=== PATIENT | female | born 1950 ===

== ENCOUNTER 2017-02-04 13:02 | Emergency (ER) | payer MEDICARE, MEDICAID ==
[2017-02-04 13:02] VITALS: BMI 32.9
[2017-02-04 13:08] VITALS: BP 188/83; PULSE 68; RESP 20; TEMP 98.1; O2SAT 98
[2017-02-04] MEDS ORDERED: Sodium Chloride 0.9% 1,000 ML IV STA (13:18)
--- NOTE | 2017-02-04 13:24 | ED PDOC ---
HPI:Nausea, Vomiting, Diarrhea Time Seen by Provider: 02/04/17 13:12 Chief Complaint (Nursing): GI Problem Chief Complaint (Provider): Nausea, Vomiting History Per: Patient History/Exam Limitations: no limitations Onset/Duration Of Symptoms: Days (x1) Current Symptoms Are (Timing): Still Present Associated Symptoms: Nausea, Vomiting Additional Complaint(s): 67 y/o female with a past medical history of vertigo and hypertension presents complaining of dizziness associated with nausea and vomiting, since this morning. Symptoms worsen on movement of head. Denies headache, chest pain, or palpitations. PMD: Dr. Flavio Darby Past Medical History Reviewed: Historical Data, Nursing Documentation, Vital Signs Vital Signs: Last Vital Signs Temp 98.1 F 02/04/17 13:05 Pulse 68 02/04/17 13:05 Resp 20 02/04/17 13:05 BP 188/83 H 02/04/17 13:05 Pulse Ox 98 02/04/17 13:05 - Medical History PMH: Fractures (Right Arm (6yrs old)), HTN, Hypercholesterolemia Denies: HIV, Chronic Kidney Disease Other PMH: Vertigo - Surgical History Surgical History: No Surg Hx - Family History Family History: States: Unknown Family Hx - Social History Current smoker - smoking cessation education provided: No Alcohol: None Drugs: Denies - Home Medications Home Medications: Ambulatory Orders Medication Instructions Recorded Lisinopril [Zestril] 5 mg PO DAILY 12/05/15 Meloxicam [Mobic] 7.5 mg PO DAILY PRN #30 tab 12/05/15 amLODIPine [Norvasc] 5 mg PO DAILY 12/05/15 Meclizine [Antivert] 25 mg PO Q6 PRN #30 tab 02/13/16 Ondansetron ODT [Zofran ODT] 4 mg PO Q6 PRN #16 odt 02/13/16 Meclizine [Meclizine*] 25 mg PO Q8 #15 tab 02/04/17 Ondansetron [Zofran] 4 mg PO Q8H #10 tab 02/04/17 - Allergies Allergies/Adverse Reactions: Allergies Allergy/AdvReac Type Severity Reaction Status Date / Time No Known Allergies Allergy Verified 02/12/16 19:51 Review of Systems ROS Statement: Except As Marked, All Systems Reviewed And Found Negative Cardiovascular: Negative for: Chest Pain, Palpitations Gastrointestinal: Positive for: Nausea, Vomiting. Negative for: Abdominal Pain , Diarrhea Neurological: Positive for: Dizziness. Negative for: Headache Physical Exam - Reviewed Nursing Documentation Reviewed: Yes Vital Signs Reviewed: Yes - Physical Exam Appears: Positive for: Non-toxic, No Acute Distress Head Exam: Positive for: ATRAUMATIC, NORMAL INSPECTION, NORMOCEPHALIC Skin: Positive for: Normal Color, Warm, Dry Eye Exam: Positive for: EOMI, Normal appearance, PERRL Neck: Positive for: Normal, Painless ROM Cardiovascular/Chest: Positive for: Regular Rate, Rhythm. Negative for: Murmur Respiratory: Positive for: Normal Breath Sounds. Negative for: Accessory Muscle Use, Respiratory Distress Extremity: Positive for: Normal ROM. Negative for: Pedal Edema, Deformity Neurologic/Psych: Positive for: Alert, Oriented (x3), Other (Symptoms elicited with real-hallpike maneuver). Negative for: Motor/Sensory Deficits - Laboratory Results Result Diagrams: 02/04/17 14:07 02/04/17 14:07 - ECG O2 Sat by Pulse Oximetry: 98 (RA) Pulse Ox Interpretation: Normal Medical Decision Making Medical Decision Making: Time: 13:18 Initial Plan: --EKG --CMP --CBC --Meclizine 25 mg PO --NS IV 1000 ml at 200 mls/hr --Zofran 4 mg IV --Pending reevaluation Scribe Attestation: Documented by Belgica Butcher, acting as a scribe for Db Duarte MD Provider Scribe Attestation: All medical record entries made by the Scribe were at my direction and personally dictated by me. I have reviewed the chart and agree that the record accurately reflects my personal performance of the history, physical exam, medical decision making, and the department course for this patient. I have also personally directed, reviewed, and agree with the discharge instructions and disposition. Disposition - Clinical Impression Clinical Impression: Vertigo - Patient ED Disposition Is Patient to be Admitted: No Counseled Patient/Family Regarding: Studies Performed, Diagnosis, Need For Followup, Rx Given - Disposition Referrals: [facility] [Outside] Disposition: Routine/Home Disposition Time: 16:15 Condition: FAIR Prescriptions: Meclizine [Meclizine*] 25 mg PO Q8 #15 tab Ondansetron [Zofran] 4 mg PO Q8H #10 tab Instructions: Vertigo (ED) Forms: [facility] ([place] Islander) Print Language: BHUTANESE
[2017-02-04 14:11] LABS: BASO % 0.5 % (0.0-2.0); EOS % 0.5 % (0.0-4.0); HEMATOCRIT 41.3 % (34.0-47.0); LYMPH # 1.2 K/uL (1.0-4.3); LYMPH % 18.3 % (20.0-40.0); MEAN CELL VOLUME 88.9 fl (81.0-99.0); MEAN CORPUSCULAR HGB CONC 32.6 g/dL (33.0-37.0); MONO # 0.3 K/uL (0.0-0.8); MONO % 5.3 % (0.0-10.0); NEUT # 4.9 K/uL (1.8-7.0); NEUT % 75.4 % (50.0-75.0); NRBC % 0.1 % (0.0-0.0); RED CELL DISTRIBUTION WIDTH 13.6 % (11.5-14.5); WHITE BLOOD COUNT 6.4 K/uL (4.8-10.8)
[2017-02-04 14:28] LABS: ALB/GLOB RATIO 1.2 (1.0-2.1); ALKALINE PHOSPHATASE 125 U/L (38-126); ALT/SGPT 48 U/L (9-52); AST/SGOT 38 U/L (14-36); BILIRUBIN,TOTAL 0.4 mg/dl (0.2-1.3); BLOOD UREA NITROGEN 17 mg/dl (7-17); CALCIUM 8.4 mg/dL (8.4-10.2); CARBON DIOXIDE 29 mmol/L (22-30); CHLORIDE 106 mmol/L (98-107); GFR AFRICAN-AMERICAN > 60; GLUCOSE,RANDOM 169 mg/dL (65-105); POTASSIUM 4.1 MMOL/L (3.6-5.0); SODIUM 143 mmol/l (132-148); TOTAL PROTEIN 8.1 G/DL (6.3-8.2)
--- NOTE | 2017-02-05 12:51 | CARD ---
APPROVED REPORT EKG Measurement Heart [id number] TX [id number] <Conclusion> Normal sinus rhythm Left axis deviation Right bundle branch block Inferior infarct, age undetermined Abnormal ECG
== END 2017-02-04 16:36 | disposition home or self-care (01) ==
LOC: H.ER 13:02
DX: R42 Dizziness and giddiness (principal); R11.2 Nausea with vomiting, unspecified; E78.00 Pure hypercholesterolemia, unspecified; I10 Essential (primary) hypertension
CPT/HCPCS: 80053; 85025; 93005; 96374; 99283; J2405; J7040

== ENCOUNTER 2018-03-10 11:24 | Inpatient (IN) | payer MEDICARE, MEDICAID ==
[2018-03-10 11:25] VITALS: BMI 32.9
[2018-03-10] MEDS ORDERED: Sodium Chloride 0.9% 1,000 ML IV STA (12:14)
--- NOTE | 2018-03-10 12:17 | ED PDOC ---
HPI: General Adult Time Seen by Provider: 03/10/18 12:02 Chief Complaint (Nursing): Dizziness/Lightheaded Chief Complaint (Provider): VERTIGO/VOMITING History Per: Patient (68 Y/O FEMALE H/O CVA H/O VERTIGO HERE WITH ROOM SPINNING ASSOCIATED WITH MULTIPLE EPISODES OF VOMITING. DENIES ANY UNILATERAL WEAKNESS/NUMBNESS. DENIES ANY CHEST PAIN/ABDOMINAL PAIN. NO FEVERS/CHILLS.) NIHSS Stroke Scale - Date/Time Evaluation Performed Date Performed: 03/10/18 Time Performed: 16:29 - How Severe is the Stroke Level of Consciousness: 0=Alert LOC to Questions: 0=Both comments correct LOC to commands: 0=Obeys both correctly Best Gaze: 0=Normal Visual: 0=No visual loss Facial: 0=Normal Motor Arm - Left: 0=No drift Motor Arm - Right: 0=No drift Motor Leg - Left: 0=No drift Motor Leg - Right: 0=No drift Limb Ataxia: 1=Present Upper or Lower (Unable to walk due to dizziness) Best Language: 0=No aphasia Dysarthia: 0=Normal articulation Extinction & Inattention (Neglect): 0=Normal, no object Past Medical History Reviewed: Historical Data, Nursing Documentation, Vital Signs Vital Signs: Last Vital Signs Temp 97.8 F 03/10/18 11:32 Pulse 66 03/10/18 11:32 Resp 18 03/10/18 11:32 BP 169/92 H 03/10/18 11:32 Pulse Ox 97 03/10/18 11:32 - Medical History PMH: CVA, Fractures (Right Arm (6yrs old)), HTN, Hypercholesterolemia Denies: HIV, Chronic Kidney Disease - Family History Family History: States: Unknown Family Hx - Home Medications Home Medications: Ambulatory Orders Medication Instructions Recorded Lisinopril [Zestril] 5 mg PO DAILY 12/05/15 Meloxicam [Mobic] 7.5 mg PO DAILY PRN #30 tab 12/05/15 amLODIPine [Norvasc] 5 mg PO DAILY 12/05/15 Meclizine [Antivert] 25 mg PO Q6 PRN #30 tab 02/13/16 Ondansetron ODT [Zofran ODT] 4 mg PO Q6 PRN #16 odt 02/13/16 Meclizine [Meclizine*] 25 mg PO Q8 #15 tab 02/04/17 Ondansetron [Zofran] 4 mg PO Q8H #10 tab 02/04/17 - Allergies Allergies/Adverse Reactions: Allergies Allergy/AdvReac Type Severity Reaction Status Date / Time No Known Allergies Allergy Verified 03/10/18 12:06 Review of Systems ROS Statement: Except As Marked, All Systems Reviewed And Found Negative Gastrointestinal: Positive for: Vomiting Neurological: Positive for: Dizziness Physical Exam - Reviewed Nursing Documentation Reviewed: Yes Vital Signs Reviewed: Yes - Physical Exam Appears: Positive for: Well, Non-toxic, No Acute Distress Head Exam: Positive for: ATRAUMATIC, NORMAL INSPECTION, NORMOCEPHALIC Skin: Positive for: Normal Color, Warm, DRY Eye Exam: Positive for: EOMI, Normal appearance, PERRL ENT: Positive for: Normal ENT Inspection Neck: Positive for: Normal, Painless ROM Cardiovascular/Chest: Positive for: Regular Rate, Rhythm Respiratory: Positive for: CNT, Normal Breath Sounds Gastrointestinal/Abdominal: Positive for: Normal Exam, Soft Back: Positive for: Normal Inspection Extremity: Positive for: Normal ROM Neurologic/Psych: Positive for: Alert, Oriented - Laboratory Results Result Diagrams: 03/10/18 13:05 03/10/18 13:05 - ECG O2 Sat by Pulse Oximetry: 97 - Progress ED Course And Treament: zofran 4 mg iv x 1 dose antivert 25 mg po x 1 dose reglan 10 mg iv x 1 dose NS 1 liter 500ml per hour CT of head:FINDINGS: HEMORRHAGE: No acute parenchymal, subarachnoid or extra-axial hemorrhage.. BRAIN: No mass effect or edema. No atrophy or chronic microvascular ischemic changes. VENTRICLES: No obstructive hydrocephalus. CALVARIUM: There are no acute calvarial fractures. PARANASAL SINUSES: Minimal mucosal thickening seen within both maxillary antra as well as a few ethmoid air cells. The the MASTOID AIR CELLS: Unremarkable as visualized. No inflammatory changes. OTHER FINDINGS: None. IMPRESSION: No acute intracranial hemorrhage. Patient has persistent vomiting/dizziness in ED with inability to walk to bathroom. Zofran 4 mg iv x 2nd dose Valium 5 mg x 1 dose d/w DR. Hartman. Requests antivert 25 mg qid po and neuro consult d/w Neurology. Request MRI of brain Disposition - Clinical Impression Clinical Impression: Vertigo, Intractable vomiting - Patient ED Disposition Is Patient to be Admitted: Yes - Disposition Disposition Time: 16:56 Condition: FAIR - Pt Status Changed To: Hospital Disposition Of: Inpatient - Admit Certification Admit to Inpatient:: After my assessment, the patient will require hospitalization for at least two midnights. This is because of the severity of symptoms shown, intensity of services needed, and/or the medical risk in this patient being treated as an outpatient.
--- NOTE | 2018-03-10 13:27 | CT ---
Date of service: 03/10/2018 PROCEDURE: CT HEAD WITHOUT CONTRAST. HISTORY: DIZZINESS/VERTIGO COMPARISON: Comparison made with prior CT scan brain 02/12/2016. TECHNIQUE: Axial computed tomography images were obtained through the head/brain without intravenous contrast. Radiation dose: Total exam DLP = 968.07 mGy-cm. This CT exam was performed using one or more of the following dose reduction techniques: Automated exposure control, adjustment of the mA and/or kV according to patient size, and/or use of iterative reconstruction technique. FINDINGS: HEMORRHAGE: No acute parenchymal, subarachnoid or extra-axial hemorrhage.. BRAIN: No mass effect or edema. No atrophy or chronic microvascular ischemic changes. VENTRICLES: No obstructive hydrocephalus. CALVARIUM: There are no acute calvarial fractures. PARANASAL SINUSES: Minimal mucosal thickening seen within both maxillary antra as well as a few ethmoid air cells. The the MASTOID AIR CELLS: Unremarkable as visualized. No inflammatory changes. OTHER FINDINGS: None. IMPRESSION: No acute intracranial hemorrhage.
[2018-03-10 14:17] LABS: BASO % 0.6 % (0.0-2.0); EOS # 0.1 K/uL (0.0-0.7); EOS % 0.8 % (0.0-4.0); HEMOGLOBIN 13.3 g/dL (12.0-16.0); LYMPH # 1.5 K/uL (1.0-4.3); LYMPH % 23.1 % (20.0-40.0); MEAN CELL VOLUME 89.3 fl (81.0-99.0); MEAN CORPUSCULAR HEMOGLOBIN 29.7 pg (27.0-31.0); MEAN CORPUSCULAR HGB CONC 33.3 g/dL (33.0-37.0); MONO # 0.4 K/uL (0.0-0.8); MONO % 6.2 % (0.0-10.0); NEUT # 4.6 K/uL (1.8-7.0); NEUT % 69.3 % (50.0-75.0); NRBC % 0.1 % (0.0-0.0); RBC 4.47 Mil/uL (3.80-5.20); RED CELL DISTRIBUTION WIDTH 13.9 % (11.5-14.5); WHITE BLOOD COUNT 6.6 K/uL (4.8-10.8)
[2018-03-10 14:31] LABS: ALB/GLOB RATIO 1.2 (1.0-2.1); ALBUMIN 4.3 g/dL (3.5-5.0); ALT/SGPT 37 U/L (9-52); AST/SGOT 34 U/L (14-36); BLOOD UREA NITROGEN 21 mg/dl (7-17); CALCIUM 8.7 mg/dL (8.4-10.2); GFR NON-AFRICAN AMERICAN > 60
[2018-03-10] MEDS ORDERED: Naproxen 500 MG TAB PO PRN (22:19)
[2018-03-10] MEDS ORDERED: Dextrose 5%/0.45% NS 1,000 ML IV SCH (22:30)
--- NOTE | 2018-03-11 13:43 | HP ---
HISTORY OF PRESENT ILLNESS: Ms. Alfred is a 68-year-old female who was admitted via the emergency room because of severe dizziness with nausea and vomiting on the day of admission. She was evaluated in the emergency room and admitted for intractable dizziness (probable vertigo, rule out [employer] pathology). PAST MEDICAL HISTORY: Hypertension and gastritis. FAMILY HISTORY: Unrevealing. SOCIAL HISTORY: Does not smoke or drink and lives at home with her children. REVIEW OF SYSTEMS: Essentially unremarkable. PHYSICAL EXAMINATION: GENERAL: The patient is alert and oriented, still appears very dizzy. VITAL SIGNS: Blood pressure 129/70, pulse 64, respiratory 20. She is febrile. O2 sat 96% on room air. SKIN: Shows fair turgor. HEENT: Pupils are equal and react to light and accommodation. JVP flat. Mouth shows fair hygiene. Ears, nose and throat normal. LUNGS: Clear. HEART: Regular. No murmurs or gallop. ABDOMEN: Soft, nontender. No organomegaly. EXTREMITIES: Shows no edema or cyanosis. GENITAL AND RECTAL: Deferred. CENTRAL NERVOUS SYSTEM: Grossly intact except for dizziness. LABORATORY DATA: CAT scan of the brain is essentially unremarkable. WBC 6.6, hemoglobin 13.3, platelet count of 238,000. Sodium 140, potassium 3.2, BUN 21, creatinine 0.8, serum glucose of 130. IMPRESSION: Intractable dizziness, questionable etiology, rule out central nervous system pathology; hypertension, fairly controlled. PLAN: Monitor the patient in telemetry. Obtain MRI of the brain. Also, obtain carotid, vertebrobasilar ultrasound. Neurology evaluation already ordered. Place the patient on Antivert. Further therapy will depend on findings. Jim Hartman MD
[2018-03-11 14:25] LABS: T4 6.62 ug/dl (5.5-11.0)
--- NOTE | 2018-03-11 14:51 | MRI ---
Date of service: 03/11/2018 PROCEDURE: MRI BRAIN WITHOUT CONTRAST HISTORY: Vertigo intractable h/o cva COMPARISON: Comparison made with prior CT scan brain 03/10/2018. TECHNIQUE: Multiplanar, multisequence MR images of the brain were obtained without intravenous contrast enhancement. FINDINGS: HEMORRHAGE: No acute parenchymal, subarachnoid or extra-axial hemorrhage. No evidence of hemosiderin deposition identified on gradient echo weighted sequence. DWI: No evidence of an acute or early subacute infarction seen on diffusion imaging. BRAIN PARENCHYMA: There is a tiny non specific focus of increased T2 signal in the left posterior frontal subcortical white matter of uncertain etiology though the change may represent sequela of small vessel disease. No other definitive focal areas of abnormal signal seen throughout the remaining brain parenchyma aside from symmetric artifact crossing most axial images and particularly conspicuous on the FLAIR sequence.. VENTRICLES: No obstructive hydrocephalus. CRANIUM: Unremarkable. ORBITS: Orbits and contents grossly unremarkable. PARANASAL SINUSES/MASTOIDS: Clear VASCULAR SYSTEM: Visualized major vascular flow voids at skull base patent.. OTHER FINDINGS: None. IMPRESSION: No evidence acute intracranial hemorrhage. Tiny nonspecific focus of increased T2 signal left posterior frontal subcortical white matter nonspecific though likely represents minimal chronic sequela of small vessel disease
--- NOTE | 2018-03-11 23:26 | CARD ---
APPROVED REPORT Date of service: 03/10/2018 EKG Measurement Heart [id number] NM [id number] [id number] <Conclusion> Normal sinus rhythm Left axis deviation Nonspecific intraventricular block Inferior infarct, age undetermined Abnormal ECG
--- NOTE | 2018-03-11 23:53 | CARD ---
APPROVED REPORT Date of service: 03/11/2018 EXAM: Two-dimensional and M-mode echocardiogram with Doppler and color Doppler. INDICATION Dizziness and Vertigo M-Mode DIMENSIONS Left Atrium (MM)3.55 (2.5-4.0cm)IVSd0.92 (0.7-1.1cm) Aortic Root3.36 (2.2-3.7cm)LVDd5.29 (4.0-5.6cm) PWd0.90 (0.7-1.1cm)IVSs1.38 cm FS (%) 34 %LVDs3.50 (2.0-3.8cm) PWs1.26 cm Aortic Valve AoV Peak Bovmoyql146.0cm/sAoV VTI35.1cmAO Peak GR.9mmHg LVOT Peak Mnsvchxz988.9cm/sLVOT VTI24.61cmAO Mean GR.5mmHg AI P 1/2 Pjdj367hx Mitral Valve MV E Aifywtrh53.2cm/sMV E Peak Gr.65mmHgMV DECEL XOXS617if MV A Naygmsas370.6cm/sMV RVW98lfA/A ratio0.9 MVA (PHT)2.86cm2 TDI Lateral E' Peak V12.30cm/sMedial E' Peak V7.25cm/sE/Lateral E'7.3 E/Medial E'12.4 Pulmonary Valve PV Peak Mmpqbihh82.9cm/s Tricuspid Valve TR Peak Syhjskcm865sa/sTR Peak Gr.19mmMnNLCH49fyXu LEFT VENTRICLE The left ventricle is normal size. There is normal left ventricular wall thickness. The left ventricular systolic function is normal. The estimated ejection fraction is 55-60% No regional wall motion abnormalities noted.. Transmitral Doppler flow pattern is Grade I-abnormal relaxation pattern. No left ventricle thrombus noted on this study. There is no ventricular septal defect visualized. There is no left ventricular aneurysm. There is no mass noted in the left ventricle. RIGHT VENTRICLE The right ventricle is normal size. There is normal right ventricular wall thickness. The right ventricular systolic function is normal. ATRIA The left atrium size is normal. The right atrium size is normal. The interatrial septum is intact with no evidence for an atrial septal defect. AORTIC VALVE The aortic valve is normal in structure. Mild to moderate aortic regurgitation is present. There is no aortic valvular stenosis. There is no aortic valvular vegetation. MITRAL VALVE The mitral valve is normal in structure. There is no evidence of mitral valve prolapse. There is no mitral valve stenosis. There is trace mitral valve regurgitation noted. TRICUSPID VALVE The tricuspid valve is normal in structure. There is mild tricuspid valve regurgitation noted. RVSP is calculated at 34 mm Hg. There is no tricuspid valve prolapse or vegetation. There is no tricuspid valve stenosis. PULMONIC VALVE The pulmonary valve is normal in structure. There is no pulmonic valvular regurgitation. There is no pulmonic valvular stenosis. GREAT VESSELS The aortic root is normal in size. The ascending aorta is normal in size. The pulmonary artery is normal. The IVC is normal in size and collapses >50% with inspiration. PERICARDIAL EFFUSION There is no pericardial effusion. There is no pleural effusion. <Conclusion> The estimated ejection fraction is 55-60% Transmitral Doppler flow pattern is Grade I-abnormal relaxation pattern. The left atrium size is normal. Mild to moderate aortic regurgitation is present. There is trace mitral valve regurgitation noted. There is mild tricuspid valve regurgitation noted. RVSP is calculated at 34 mm Hg.
--- NOTE | 2018-03-12 10:38 | CP.PCM.PN ---
Subjective - Date & Time of Evaluation Date of Evaluation: 03/12/18 Time of Evaluation: 10:39 - Subjective Subjective: DIZZINESS STILL PRESENT BUT IMPROVING ABLE TO WALK WITH ASSISTANCE VSS Objective - Vital Signs/Intake and Output Vital Signs (last 24 hours): Temp Pulse Resp BP Pulse Ox 98.4 F 60 20 149/71 99 03/12/18 08:31 03/12/18 09:04 03/12/18 08:31 03/12/18 09:04 03/12/18 08:31 - Medications Medications: Current Medications Amlodipine Besylate (Norvasc) 5 mg PO DAILY [facility] Last Admin: 03/12/18 09:04 Dose: 5 mg Aspirin (Ecotrin) 81 mg PO DAILY [facility] Last Admin: 03/12/18 09:04 Dose: 81 mg Lisinopril (Zestril) 10 mg PO DAILY [facility] Last Admin: 03/12/18 09:03 Dose: 10 mg Meclizine HCl (Antivert) 25 mg PO QID [facility] Last Admin: 03/12/18 09:03 Dose: 25 mg Naproxen (Naproxen) 500 mg PO Q12 PRN PRN Reason: Pain, moderate (4-7) Last Admin: 03/11/18 13:55 Dose: 500 mg - Labs Labs: 03/10/18 13:05 03/10/18 13:05 - Constitutional Appears: No Acute Distress - Head Exam Head Exam: ATRAUMATIC, NORMAL INSPECTION, NORMOCEPHALIC - Eye Exam Eye Exam: EOMI, Normal appearance, PERRL Pupil Exam: NORMAL ACCOMODATION, PERRL - ENT Exam ENT Exam: Mucous Membranes Moist, Normal Exam - Neck Exam Neck Exam: Full ROM, Normal Inspection. absent: Lymphadenopathy - Respiratory Exam Respiratory Exam: Clear to Ausculation Bilateral, NORMAL BREATHING PATTERN - Cardiovascular Exam Cardiovascular Exam: REGULAR RHYTHM, +S1, +S2. absent: Murmur - GI/Abdominal Exam GI & Abdominal Exam: Soft, Normal Bowel Sounds. absent: Tenderness - Rectal Exam Rectal Exam: NORMAL INSPECTION - Extremities Exam Extremities Exam: Full ROM, Normal Capillary Refill, Normal Inspection. absent: Joint Swelling, Pedal Edema - Back Exam Back Exam: NORMAL INSPECTION - Neurological Exam Neurological Exam: Abnormal Gait, Alert, Awake, CN II-XII Intact, Oriented x3 - Psychiatric Exam Psychiatric exam: Normal Affect, Normal Mood - Skin Skin Exam: Dry, Intact, Normal Color, Warm Assessment and Plan - Assessment and Plan (Free Text) Assessment: SEVERE DIZZINESS--PROBABLY VERTIGO HTN HYPERLIPIDEMIA Plan: CONTINUE CURRENT RX INCREASE ACTIVITY CAROTID DOPPLER ORDERED TO R/O VASCULAR PATHOLOGY D/C IN AM IF STABLE
--- NOTE | 2018-03-12 16:38 | US ---
Date of service: 03/12/2018 PROCEDURE: Duplex ultrasound of the carotid and vertebral arteries. HISTORY: DIZZINESS COMPARISON: Comparison made with prior carotid Doppler study 03/13/2011. Correlation made with CT scan and MRI of the brain dated 03/10/2018 and 03/11/2018 respectively. Comparison made with TECHNIQUE: Grayscale and duplex Doppler evaluation of the cervical carotid and vertebral arteries were performed. The common carotid, carotid bifurcations and cervical ICA and proximal ECA were evaluated. The vertebral arteries were evaluated for gross patency and direction. FINDINGS: RIGHT CAROTID ARTERIES: Common Carotid Artery: Mild intimal thickening l. Maximal flow velocity of 61.2 cm/s. Carotid Bifurcation: Normal. Internal Carotid Artery:Normal. Maximal flow velocity of 83.1 cm/s. External Carotid Artery (proximal branches): Normal. Maximal flow velocity of 93 cm/s. ICA/CCA Ratio: 1.5 LEFT CAROTID ARTERIES: Common Carotid Artery: Mild intimal thickening. Maximal flow velocity of 64.7 cm/s. Carotid Bifurcation: Small plaque left carotid bifurcation the. Internal Carotid Artery:Normal. Maximal flow velocity of 100 cm/s. External Carotid Artery (proximal branches): Normal. Maximal flow velocity of 85.6 cm/s. ICA/CCA Ratio: 1.8 VERTEBRAL ARTERIES: Right Vertebral Artery: Patent. Antegrade flow. Left Vertebral Artery: Patent. Antegrade flow. OTHER FINDINGS: No atherosclerotic calcification present IMPRESSION: Mild intimal thickening both common carotid arteries with small plaque left carotid bifurcation. No evidence of a hemodynamically significant stenosis based on velocity measurements..
[2018-03-13 07:44] VITALS: RESP 18; O2SAT 98
--- NOTE | 2018-03-13 10:41 | CP.PCM.PN ---
Subjective - Date & Time of Evaluation Date of Evaluation: 03/13/18 Time of Evaluation: 10:40 - Subjective Subjective: Neurology Follow-Up Note: Mrs. Tima Darby was evaluated this morning at bedside. She admits that her dizziness has improved since admission. She states that she ran out of her Meclizine prescription at home. She describes her dizziness as the "room spinning." It is usually improved with Meclizine. Has tried vestibular therapy in the past but "I didn't like the way it made me feel." Currently denies h/a, dizziness, visual changes, chest pain, palpitations, sob, n/v/d. Objective - Vital Signs/Intake and Output Vital Signs (last 24 hours): Temp Pulse Resp BP Pulse Ox 98.6 F 62 18 133/74 98 03/13/18 07:44 03/13/18 09:11 03/13/18 07:44 03/13/18 09:11 03/13/18 07:44 - Medications Medications: Current Medications Amlodipine Besylate (Norvasc) 5 mg PO DAILY [facility] Last Admin: 03/13/18 09:11 Dose: 5 mg Aspirin (Ecotrin) 81 mg PO DAILY [facility] Last Admin: 03/13/18 09:10 Dose: 81 mg Atorvastatin Calcium (Lipitor) 10 mg PO DAILY@2200 [facility] Last Admin: 03/12/18 21:42 Dose: 10 mg Lisinopril (Zestril) 10 mg PO DAILY [facility] Last Admin: 03/13/18 09:11 Dose: 10 mg Meclizine HCl (Antivert) 25 mg PO QID [facility] Last Admin: 03/13/18 09:10 Dose: 25 mg Naproxen (Naproxen) 500 mg PO Q12 PRN PRN Reason: Pain, moderate (4-7) Last Admin: 03/11/18 13:55 Dose: 500 mg - Labs Labs: 03/10/18 13:05 03/10/18 13:05 - Constitutional Appears: Well, Non-toxic, No Acute Distress - Head Exam Head Exam: ATRAUMATIC, NORMAL INSPECTION, NORMOCEPHALIC - Eye Exam Eye Exam: EOMI, Normal appearance. absent: Nystagmus Pupil Exam: NORMAL ACCOMODATION - ENT Exam ENT Exam: Mucous Membranes Moist - Neck Exam Neck Exam: Full ROM, Normal Inspection - Respiratory Exam Respiratory Exam: NORMAL BREATHING PATTERN - Extremities Exam Extremities Exam: Full ROM, Normal Inspection. absent: Calf Tenderness, Pedal Edema - Back Exam Back Exam: Full ROM - Neurological Exam Neurological Exam: Alert, Awake, CN II-XII Intact, Oriented x3, Reflexes Normal Neuro motor strength exam: Left Upper Extremity: 5, Right Upper Extremity: 5, Left Lower Extremity: 5, Right Lower Extremity: 5 Additional comments: speech clear no neuro deficits on exam strength equal and strong b/l fine motor and sensation intact gait not assessed; PT notes reviewed. - Psychiatric Exam Psychiatric exam: Normal Affect, Normal Mood - Skin Skin Exam: Normal Color Assessment and Plan (1) Vertigo Assessment & Plan: Imaging reviewed: -ECHO (03/11/18): EF 55-60% -Carotid U/S (03/11/18): Mild intimal thickening both common carotid arteries with small plaque left carotid bifurcation. No evidence of a hemodynamically significant stenosis based on velocity measurements. -MRI Brain (03/10/18): No evidence acute intracranial hemorrhage. Tiny nonspecific focus of increased T2 signal left posterior frontal subcortical white matter nonspecific though likely represents minimal chronic sequela of small vessel disease -CT Head (03/10/18): No acute intracranial hemorrhage -Dizziness is likely 2/2 vertigo -Continue Meclizine 25 mg PO QID prn dizziness upon discharge. Please provide pt with rx as she has ran out of her rx at home. -Continue PT -Notify neuro of acute changes. -Pt is neurologically stable for d/c. Pt may follow up with in the office within 3-4 weeks and prn. -Please reconsult prn. Thank you for allowing us to participate in this pt's care. Case discussed with . Status: Acute
[2018-03-13 11:51] VITALS: BP 152/82; PULSE 77; TEMP 98.3
--- NOTE | 2018-03-13 12:21 | CP.PCM.DIS ---
Provider - Provider Date of Admission: 03/12/18 10:40 Attending physician: Jim Hartman MD Consults: 03/10/18 17:00 Neurology Consult Stat Comment: vertigo Consulting Provider: Ishmael Rao Consulting Physician: Ishmael Rao Reason for Consult: vertigo Time Spent in preparation of Discharge (in minutes): 30 Diagnosis - Discharge Diagnosis (1) Intractable vomiting Status: Acute (2) Vertigo Status: Acute (3) DVT prophylaxis Status: Acute (4) Hypertension Status: Acute Hospital Course - Lab Results Lab Results: Most Recent Lab Values WBC 6.6 K/uL (4.8-10.8) 03/10/18 13:05 RBC 4.47 Mil/uL (3.80-5.20) 03/10/18 13:05 Hgb 13.3 g/dL (12.0-16.0) 03/10/18 13:05 Hct 39.9 % (34.0-47.0) 03/10/18 13:05 MCV 89.3 fl (81.0-99.0) 03/10/18 13:05 MCH 29.7 pg (27.0-31.0) 03/10/18 13:05 MCHC 33.3 g/dL (33.0-37.0) 03/10/18 13:05 RDW 13.9 % (11.5-14.5) 03/10/18 13:05 Plt Count 238 K/uL (130-400) 03/10/18 13:05 MPV 9.0 fl (7.2-11.7) 03/10/18 13:05 Neut % (Auto) 69.3 % (50.0-75.0) 03/10/18 13:05 Lymph % (Auto) 23.1 % (20.0-40.0) 03/10/18 13:05 Winn % (Auto) 6.2 % (0.0-10.0) 03/10/18 13:05 Eos % (Auto) 0.8 % (0.0-4.0) 03/10/18 13:05 Baso % (Auto) 0.6 % (0.0-2.0) 03/10/18 13:05 Neut # (Auto) 4.6 K/uL (1.8-7.0) 03/10/18 13:05 Lymph # (Auto) 1.5 K/uL (1.0-4.3) 03/10/18 13:05 Winn # (Auto) 0.4 K/uL (0.0-0.8) 03/10/18 13:05 Eos # (Auto) 0.1 K/uL (0.0-0.7) 03/10/18 13:05 Baso # (Auto) 0.0 K/uL (0.0-0.2) 03/10/18 13:05 ESR 28 mm/hr (0-30) 03/11/18 13:38 Sodium 140 mmol/l (132-148) 03/10/18 13:05 Potassium 3.8 MMOL/L (3.6-5.0) 03/10/18 13:05 Chloride 102 mmol/L (98-107) 03/10/18 13:05 Carbon Dioxide 25 mmol/L (22-30) 03/10/18 13:05 Anion Gap 17 (10-20) 03/10/18 13:05 BUN 21 mg/dl (7-17) H 03/10/18 13:05 Creatinine 0.8 mg/dl (0.7-1.2) 03/10/18 13:05 Est GFR ( Amer) > 60 03/10/18 13:05 Est GFR (Non-Af Amer) > 60 03/10/18 13:05 POC Glucose (mg/dL) 213 mg/dL (65-110) H 03/13/18 10:42 Random Glucose 160 mg/dL (65-105) H 03/10/18 13:05 Calcium 8.7 mg/dL (8.4-10.2) 03/10/18 13:05 Magnesium 2.0 MG/DL (1.6-2.3) 03/10/18 13:05 Total Bilirubin 0.4 mg/dl (0.2-1.3) 03/10/18 13:05 AST 34 U/L (14-36) 03/10/18 13:05 ALT 37 U/L (9-52) 03/10/18 13:05 Alkaline Phosphatase 118 U/L (38-126) 03/10/18 13:05 Troponin I < 0.0120 ng/mL (0.00-0.120) 03/10/18 13:05 Total Protein 7.8 G/DL (6.3-8.2) 03/10/18 13:05 Albumin 4.3 g/dL (3.5-5.0) 03/10/18 13:05 Globulin 3.5 gm/dL (2.2-3.9) 03/10/18 13:05 Albumin/Globulin Ratio 1.2 (1.0-2.1) 03/10/18 13:05 Triglycerides 245 mg/DL (0-149) H D 03/11/18 13:38 Cholesterol 193 mg/dL (0-199) 03/11/18 13:38 LDL Cholesterol Direct 133 mg/dL (0-129) H 03/11/18 13:38 HDL Cholesterol 38 MG/DL (30-70) 03/11/18 13:38 Thyroxine (T4) 6.62 ug/dl (5.5-11.0) 03/11/18 13:38 TSH 3rd Generation 2.86 mIU/ML (0.46-4.68) 03/11/18 13:38 - Hospital Course Hospital Course: dizziness resolved feels better Discharge Exam - Head Exam Head Exam: ATRAUMATIC, NORMAL INSPECTION, NORMOCEPHALIC - Eye Exam Eye Exam: EOMI, Normal appearance, PERRL Pupil Exam: NORMAL ACCOMODATION, PERRL - GI/Abdominal Exam GI & Abdominal Exam: Normal Bowel Sounds - Rectal Exam Rectal Exam: NORMAL INSPECTION - Neurological Exam Neurological exam: Alert, CN II-XII Intact, Normal Gait, Oriented x3, Reflexes Normal - Psychiatric Exam Psychiatric exam: Normal Affect, Normal Mood - Skin Skin Exam: Dry, Intact, Normal Color, Warm Discharge Plan - Follow Up Plan Condition: FAIR Disposition: HOME/ ROUTINE Instructions: Vertigo (a Type of Dizziness) (DC) Additional Instructions: follow up with pmd in 1 week Referrals: Ishmael Rao MD [Medical Doctor] - Flavio Darby MD [Family Provider] - Jim Hartman MD [Staff Provider] -
--- NOTE | 2018-03-13 13:30 | CP.PCM.PCO ---
Assessment/Plan - Assessment and Plan (Free Text) Assessment: Patient with elevated blood sugar prior to Discharge. Instructed to follow up with her doctor Wilner and address it with him. Son at bedside, also made aware.
== END 2018-03-13 13:21 | disposition home or self-care (01) | DRG 149 ==
LOC: H.ER 11:24 → H.ERHOLD 16:49 → H.TEL 18:49 → OBSVTOIN 03-12 10:40
PROVIDERS: ADMIT Internal Medicine Pulmonary Disease; ATTEND Internal Medicine Pulmonary Disease
DX: R42 Dizziness and giddiness (principal); R73.9 Hyperglycemia, unspecified; K29.70 Gastritis, unspecified, without bleeding; I10 Essential (primary) hypertension; E78.00 Pure hypercholesterolemia, unspecified; E78.5 Hyperlipidemia, unspecified; Z86.73 Personal history of transient ischemic attack (TIA), and cerebral infarction without residual deficits